=== PATIENT | male | born 1960 | race American Indian/Alaskan Native ===

== ENCOUNTER 2018-01-02 00:45 | Emergency (ER) | payer BC ==
[~2018-01-02] VITALS: Ht 175.3 cm; Wt 126.0 kg
[~2018-01-02 00:45] MED LIST: ALB0.5UD IH; ALBU18HF2 IH; ASPI81TA52 PO; CEPH-571 PO; FURO-150 PO; LISI10TA4 PO; METO25TA6 PO; POTA10TA10 PO
[2018-01-02] MEDS ORDERED: clindamycin 150mg capsule PO ONE (01:10)
[2018-01-02] MEDS ORDERED: CLIN-80 PO (01:16)
[2018-01-02] MEDS ORDERED: acetaminophen 325mg tablet PO ONE (01:20)
[2018-01-02 01:26] VITALS: BP 131/78
== END 2018-01-02 01:27 | disposition home or self-care (01) ==
LOC: ER 00:45
DX: L97.529 Non-pressure chronic ulcer of other part of left foot with unspecified severity (principal); L97.519 Non-pressure chronic ulcer of other part of right foot with unspecified severity; F15.10 Other stimulant abuse, uncomplicated; J44.9 Chronic obstructive pulmonary disease, unspecified; I11.0 Hypertensive heart disease with heart failure; I50.9 Heart failure, unspecified; F12.10 Cannabis abuse, uncomplicated; Z79.82 Long term (current) use of aspirin; Z79.899 Other long term (current) drug therapy; Z88.8 Allergy status to other drugs, medicaments and biological substances
CPT/HCPCS: 99283

== ENCOUNTER 2018-01-08 13:47 | Emergency (ER) | payer BC ==
[~2018-01-08] VITALS: Ht 175.3 cm; Wt 122.7 kg
[~2018-01-08 13:47] MED LIST changes: +CLIN-80 PO
[2018-01-08] MEDS ORDERED: furosemide 40mg/4ml inj IV ONE (16:00)
[2018-01-08] MEDS ORDERED: nitroGLYCERIN 0.4mg SUBLingual tab SL PRN (16:00)
[2018-01-08 17:08] LABS: ALANINE AMINOTRANSFERASE 41 U/L (12-78); ALBUMIN 2.6 G/DL (3.4-5.0); ALBUMIN/GLOBULIN RATIO 0.7 (1.1-1.5); ALKALINE PHOSPHATASE 107 IU/L (46-116); ANION GAP 8 (8-16); ASPARTATE AMINO TRANSFERASE 29 U/L (10-37); BILIRUBIN,TOTAL 1.2 MG/DL (0.1-1.0); BLOOD UREA NITROGEN 18 MG/DL (7-18); BUN/CREATININE RATIO 13.8 (5.4-32.0); CHLORIDE 101 MMOL/L (99-107); GLUCOSE 144 MG/DL (70-104); POTASSIUM 4.1 MMOL/L (3.5-5.1); SODIUM 138 MMOL/L (135-145); TOTAL CARBON DIOXIDE 29.3 MMOL/L (24-32); TOTAL PROTEIN 6.4 G/DL (6.4-8.2); eGFR 57 ML/MIN
[2018-01-08 17:10] LABS: BASOPHILS # (AUTO) 0.1 X10'3 (0-0.2); BASOPHILS % (AUTO) 1.3 % (0-1); EOSINOPHILS # (AUTO) 0.6 X10'3 (0-0.9); EOSINOPHILS % (AUTO) 6.6 % (0-6); HEMATOCRIT 34.5 % (42.0-52.0); HEMOGLOBIN 10.9 g/dl (14.0-17.9); LYMPHOCYTES # (AUTO) 2.4 X10'3 (1.1-4.8); LYMPHOCYTES % (AUTO) 25.9 % (21-51); MEAN CORPUSCULAR HEMOGLOBIN 24.8 PG (27.0-31.0); MEAN CORPUSCULAR HGB CONC 31.8 % (33.0-36.5); MEAN PLATELET VOLUME 7.4 FL (7.4-10.4); MONOCYTES # (AUTO) 0.8 X10'3 (0-0.9); MONOCYTES % (AUTO) 8.9 % (2-12); NEUTROPHILS # (AUTO) 5.4 X10'3 (1.8-7.7); NEUTROPHILS % (AUTO) 57.3 % (42-75); PLATELET COUNT 360 X10'3 (140-440); RED BLOOD COUNT 4.42 X10'6 (4.70-6.10); RED CELL DISTRIBUTION WIDTH 18.3 % (11.5-14.5); WHITE BLOOD COUNT 9.4 X10'3 (4.5-11.0)
[2018-01-08 18:46] VITALS: BP 145/65
== END 2018-01-08 18:48 | disposition home or self-care (01) ==
LOC: ER 13:48
DX: R60.0 Localized edema (principal); I11.0 Hypertensive heart disease with heart failure; I50.9 Heart failure, unspecified; F12.10 Cannabis abuse, uncomplicated; F15.10 Other stimulant abuse, uncomplicated; J44.9 Chronic obstructive pulmonary disease, unspecified; Z88.8 Allergy status to other drugs, medicaments and biological substances; Z79.82 Long term (current) use of aspirin; Z79.899 Other long term (current) drug therapy
CPT/HCPCS: 36415; 71045; 80053; 83880; 84484; 85025; 93005; 96374; 99285; A6257; J1940

== ENCOUNTER 2018-01-16 17:03 | Inpatient (IN) | payer BC ==
[~2018-01-16] VITALS: Ht 170.2 cm; Wt 110.0 kg
[2018-01-16] MEDS ORDERED: albuterol 2.5 MG/3 ML nebule ONE ×2 (17:07→17:08)
[2018-01-16] MEDS ORDERED: furosemide 40mg/4ml inj IV ONE (17:10)
[2018-01-16] MEDS ORDERED: methylPREDNISolone sod succ 125mg/2ml vial IV ONE (17:10)
[2018-01-16] MEDS ORDERED: nitroGLYCERIN 1gm ointment UD TP ONE (17:10)
[2018-01-16 17:36] LABS: BASOPHILS % (AUTO) 0.2 % (0-1); EOSINOPHILS # (AUTO) 0.4 X10'3 (0-0.9); EOSINOPHILS % (AUTO) 2.8 % (0-6); HEMATOCRIT 39.9 % (42.0-52.0); HEMOGLOBIN 12.6 g/dl (14.0-17.9); LYMPHOCYTES # (AUTO) 1.3 X10'3 (1.1-4.8); LYMPHOCYTES % (AUTO) 8.9 % (21-51); MEAN CORPUSCULAR HEMOGLOBIN 24.1 PG (27.0-31.0); MEAN CORPUSCULAR HGB CONC 31.5 % (33.0-36.5); MEAN CORPUSCULAR VOLUME 76.6 FL (78-98); MEAN PLATELET VOLUME 7.4 FL (7.4-10.4); MONOCYTES # (AUTO) 0.9 X10'3 (0-0.9); NEUTROPHILS # (AUTO) 12.2 X10'3 (1.8-7.7); NEUTROPHILS % (AUTO) 82.1 % (42-75); PLATELET COUNT 326 X10'3 (140-440); RED CELL DISTRIBUTION WIDTH 18.4 % (11.5-14.5); WHITE BLOOD COUNT 14.9 X10'3 (4.5-11.0)
[2018-01-16 17:46] LABS: PARTIAL THROMBOPLASTIN TIME 23 SECONDS (22-32); PROTHROMBIN TIME 10.7 SECONDS (9.0-12.0)
[2018-01-16 17:59] LABS: ALANINE AMINOTRANSFERASE 25 U/L (12-78); ALBUMIN 2.7 G/DL (3.4-5.0); ALBUMIN/GLOBULIN RATIO 0.6 (1.1-1.5); ALKALINE PHOSPHATASE 103 IU/L (46-116); ANION GAP 7 (8-16); ASPARTATE AMINO TRANSFERASE 35 U/L (10-37); BLOOD UREA NITROGEN 11 MG/DL (7-18); BUN/CREATININE RATIO 9.6 (5.4-32.0); CALCIUM 8.4 MG/DL (8.5-10.1); CHLORIDE 100 MMOL/L (99-107); CREATININE 1.15 MG/DL (0.60-1.10); GLUCOSE 199 MG/DL (70-104); MAGNESIUM 1.8 MG/DL (1.5-2.4); POTASSIUM 4.2 MMOL/L (3.5-5.1); SODIUM 137 MMOL/L (135-145); TOTAL CARBON DIOXIDE 29.8 MMOL/L (24-32); TOTAL PROTEIN 7.4 G/DL (6.4-8.2); eGFR 66 ML/MIN
[2018-01-16] MEDS ORDERED: ipratropium/albuterol 3ml nebule NEB ONE (18:55)
[2018-01-16] MEDS ORDERED: magnesium hydroxide 30ml (MOM) UD suspension PO PRN (19:40)
[2018-01-16] MEDS ORDERED: acetaminophen 325mg tablet PO PRN (19:40)
[2018-01-16] MEDS ORDERED: ondansetron/PF 4mg/2ml inj IV PRN (19:40)
[2018-01-16] MEDS ORDERED: mag hydrox/Alum hydrox/simeth 30ml oral suspension PO PRN (19:40)
[2018-01-16] MEDS ORDERED: SPIR25TA3 PO (20:17)
[2018-01-16] MEDS ORDERED: CARV-50 PO (20:17)
[2018-01-16] MEDS ORDERED: POTA10TA19 PO (20:17)
[2018-01-16] MEDS: heparin, porcine 5000 units/ml vial SQ SCH (20:26)
[2018-01-16 21:06] LABS: URINE AMPHETAMINE SCREEN NEGATIVE (Neg); URINE BARBITUATE SCREEN NEGATIVE (Neg); URINE BENZODIAZEPINES SCREEN NEGATIVE (Neg); URINE CANNABINOID SCREEN POSITIVE (Neg); URINE COCAINE SCREEN NEGATIVE (Neg); URINE METHADONE SCREEN NEGATIVE (Neg); URINE OPIATE SCREEN POSITIVE (Neg); URINE PHENCYCLIDINE SCREEN NEGATIVE (Neg)
[2018-01-16] MEDS: clindamycin 150mg capsule PO SCH (21:07)
[2018-01-16 23:15] VITALS: BP 140/98
[2018-01-17 03:00] VITALS: BP 150/97
[2018-01-17] MEDS ORDERED: ipratropium 0.5 MG/2.5ML nebule IH ONE (04:05)
[2018-01-17] MEDS ORDERED: methylPREDNISolone sod succ/PF 40mg inj. IV ONE (04:21)
[2018-01-17 06:00] VITALS: BP 136/95
[2018-01-17 06:35] LABS: ALANINE AMINOTRANSFERASE 27 U/L (12-78); ALBUMIN 2.6 G/DL (3.4-5.0); ALBUMIN/GLOBULIN RATIO 0.5 (1.1-1.5); ALKALINE PHOSPHATASE 98 IU/L (46-116); ANION GAP 10 (8-16); ASPARTATE AMINO TRANSFERASE 36 U/L (10-37); BILIRUBIN,TOTAL 1.1 MG/DL (0.1-1.0); BLOOD UREA NITROGEN 13 MG/DL (7-18); BUN/CREATININE RATIO 14.9 (5.4-32.0); CALCIUM 8.6 MG/DL (8.5-10.1); CHLORIDE 100 MMOL/L (99-107); CREATININE 0.87 MG/DL (0.60-1.10); GLUCOSE 187 MG/DL (70-104); MAGNESIUM 2.1 MG/DL (1.5-2.4); POTASSIUM 4.3 MMOL/L (3.5-5.1); SODIUM 136 MMOL/L (135-145); TOTAL CARBON DIOXIDE 26.3 MMOL/L (24-32); TOTAL PROTEIN 7.6 G/DL (6.4-8.2); eGFR 90 ML/MIN
[2018-01-17 07:34] LABS: BASOPHILS % (AUTO) 0 % (0-1); EOSINOPHILS # (AUTO) 0.2 X10'3 (0-0.9); EOSINOPHILS % (AUTO) 1.9 % (0-6); HEMATOCRIT 42.4 % (42.0-52.0); HEMOGLOBIN 13.4 g/dl (14.0-17.9); LYMPHOCYTES # (AUTO) 0.9 X10'3 (1.1-4.8); LYMPHOCYTES % (AUTO) 6.9 % (21-51); MEAN CORPUSCULAR HGB CONC 31.6 % (33.0-36.5); MEAN PLATELET VOLUME 7.6 FL (7.4-10.4); MONOCYTES # (AUTO) 0.3 X10'3 (0-0.9); MONOCYTES % (AUTO) 2.1 % (2-12); NEUTROPHILS # (AUTO) 11.4 X10'3 (1.8-7.7); NEUTROPHILS % (AUTO) 89.1 % (42-75); PLATELET COUNT 295 X10'3 (140-440); RED BLOOD COUNT 5.58 X10'6 (4.70-6.10); RED CELL DISTRIBUTION WIDTH 18.1 % (11.5-14.5); WHITE BLOOD COUNT 12.8 X10'3 (4.5-11.0)
[2018-01-17] MEDS: potassium Cl 20 mEq SR tablet PO SCH (07:34)
[2018-01-17] MEDS: clindamycin 150mg capsule PO SCH ×3 (07:34→20:16)
[2018-01-17] MEDS: carvedilol 6.25mg tablet PO SCH ×2 (07:35→20:16)
[2018-01-17] MEDS: magnesium oxide 400mg tablet PO SCH (07:35)
[2018-01-17] MEDS: heparin, porcine 5000 units/ml vial SQ SCH ×2 (07:39→20:16)
[2018-01-17] MEDS ORDERED: furosemide 20MG tablet PO SCH (08:00)
[2018-01-17] MEDS ORDERED: methylPREDNISolone sod succ/PF 40mg inj. IV SCH (08:00)
[2018-01-17] MEDS: albuterol 2.5 MG/3 ML nebule NEB PRN ×2 (09:45→12:56)
[2018-01-17 11:00] VITALS: BP 142/92
[2018-01-17 15:00] VITALS: BP 155/90
[2018-01-17] MEDS: ipratropium/albuterol 3ml nebule NEB SCH ×2 (15:11→19:44)
[2018-01-17] MEDS: lactobacillus rhamnosus 10,000 MMU CELLS/CAPSULE PO SCH (16:50)
[2018-01-17 19:00] VITALS: BP 154/96
[2018-01-17] MEDS: furosemide 40mg/4ml inj IV SCH (20:16)
[2018-01-17 23:00] VITALS: BP 157/96
[2018-01-18] MEDS: ipratropium/albuterol 3ml nebule NEB SCH ×4 (02:55→22:06)
[2018-01-18 03:00] VITALS: BP 154/99
[2018-01-18 06:00] VITALS: BP 173/101
[2018-01-18 06:01] LABS: BASOPHILS # (AUTO) 0.1 X10'3 (0-0.2); BASOPHILS % (AUTO) 0.4 % (0-1); EOSINOPHILS # (AUTO) 0.3 X10'3 (0-0.9); EOSINOPHILS % (AUTO) 1.7 % (0-6); HEMATOCRIT 39.7 % (42.0-52.0); HEMOGLOBIN 12.5 g/dl (14.0-17.9); LYMPHOCYTES # (AUTO) 1.8 X10'3 (1.1-4.8); LYMPHOCYTES % (AUTO) 10.7 % (21-51); MEAN CORPUSCULAR HEMOGLOBIN 24.4 PG (27.0-31.0); MEAN CORPUSCULAR HGB CONC 31.5 % (33.0-36.5); MEAN CORPUSCULAR VOLUME 77.4 FL (78-98); MEAN PLATELET VOLUME 7.6 FL (7.4-10.4); MONOCYTES # (AUTO) 1.1 X10'3 (0-0.9); MONOCYTES % (AUTO) 6.5 % (2-12); NEUTROPHILS # (AUTO) 13.3 X10'3 (1.8-7.7); NEUTROPHILS % (AUTO) 80.7 % (42-75); PLATELET COUNT 270 X10'3 (140-440); RED BLOOD COUNT 5.13 X10'6 (4.70-6.10); RED CELL DISTRIBUTION WIDTH 18.4 % (11.5-14.5); WHITE BLOOD COUNT 16.5 X10'3 (4.5-11.0)
[2018-01-18 06:27] LABS: ALANINE AMINOTRANSFERASE 28 U/L (12-78); ALBUMIN 2.3 G/DL (3.4-5.0); ALBUMIN/GLOBULIN RATIO 0.5 (1.1-1.5); ALKALINE PHOSPHATASE 87 IU/L (46-116); ANION GAP 6 (8-16); ASPARTATE AMINO TRANSFERASE 23 U/L (10-37); BILIRUBIN,TOTAL 0.6 MG/DL (0.1-1.0); BLOOD UREA NITROGEN 26 MG/DL (7-18); BUN/CREATININE RATIO 27.1 (5.4-32.0); CALCIUM 8.4 MG/DL (8.5-10.1); CHLORIDE 102 MMOL/L (99-107); CREATININE 0.96 MG/DL (0.60-1.10); GLUCOSE 212 MG/DL (70-104); MAGNESIUM 2.1 MG/DL (1.5-2.4); POTASSIUM 3.9 MMOL/L (3.5-5.1); SODIUM 140 MMOL/L (135-145); TOTAL CARBON DIOXIDE 32.2 MMOL/L (24-32); TOTAL PROTEIN 6.9 G/DL (6.4-8.2); eGFR 81 ML/MIN
[2018-01-18] MEDS: heparin, porcine 5000 units/ml vial SQ SCH ×2 (07:32→19:52)
[2018-01-18] MEDS: potassium Cl 20 mEq SR tablet PO SCH (07:32)
[2018-01-18] MEDS: furosemide 40mg/4ml inj IV SCH ×2 (07:32→19:53)
[2018-01-18] MEDS: clindamycin 150mg capsule PO SCH ×3 (07:32→20:06)
[2018-01-18] MEDS: carvedilol 6.25mg tablet PO SCH ×2 (07:32→19:53)
[2018-01-18] MEDS: lactobacillus rhamnosus 10,000 MMU CELLS/CAPSULE PO SCH ×2 (07:33→17:47)
[2018-01-18] MEDS: magnesium oxide 400mg tablet PO SCH (07:33)
[2018-01-18] MEDS: morphine 2 MG/ML inj. syringe IV PRN ×3 (07:41→22:20)
[2018-01-18] MEDS ORDERED: carvedilol 6.25mg tablet PO ONE (10:30)
[2018-01-18 11:00] VITALS: BP 131/97
[2018-01-18] MEDS: spironolactone 25 MG tablet PO SCH (11:15)
[2018-01-18] MEDS: albuterol 2.5 MG/3 ML nebule NEB PRN ×2 (13:40→17:56)
[2018-01-18 15:00] VITALS: BP 144/85
[2018-01-18 19:00] VITALS: BP 117/67
[2018-01-18 23:00] VITALS: BP 144/99
[2018-01-19 03:00] VITALS: BP 132/83
[2018-01-19] MEDS: ipratropium/albuterol 3ml nebule NEB SCH ×3 (03:14→14:54)
[2018-01-19 06:00] VITALS: BP 127/92
[2018-01-19 07:06] LABS: ALANINE AMINOTRANSFERASE 30 U/L (12-78); ALBUMIN 2.4 G/DL (3.4-5.0); ALBUMIN/GLOBULIN RATIO 0.5 (1.1-1.5); ALKALINE PHOSPHATASE 84 IU/L (46-116); ANION GAP 5 (8-16); ASPARTATE AMINO TRANSFERASE 24 U/L (10-37); BILIRUBIN,TOTAL 0.5 MG/DL (0.1-1.0); BLOOD UREA NITROGEN 25 MG/DL (7-18); BUN/CREATININE RATIO 25.5 (5.4-32.0); CALCIUM 8.6 MG/DL (8.5-10.1); CHLORIDE 101 MMOL/L (99-107); CREATININE 0.98 MG/DL (0.60-1.10); GLUCOSE 161 MG/DL (70-104); MAGNESIUM 2.3 MG/DL (1.5-2.4); SODIUM 141 MMOL/L (135-145); TOTAL CARBON DIOXIDE 35.3 MMOL/L (24-32); TOTAL PROTEIN 6.9 G/DL (6.4-8.2); eGFR 79 ML/MIN
[2018-01-19] MEDS: potassium Cl 20 mEq SR tablet PO SCH (07:45)
[2018-01-19] MEDS: spironolactone 25 MG tablet PO SCH (07:45)
[2018-01-19] MEDS: lactobacillus rhamnosus 10,000 MMU CELLS/CAPSULE PO SCH ×2 (07:45→17:30)
[2018-01-19] MEDS: magnesium oxide 400mg tablet PO SCH (07:46)
[2018-01-19] MEDS: carvedilol 6.25mg tablet PO SCH (07:46)
[2018-01-19] MEDS: clindamycin 150mg capsule PO SCH ×2 (07:46→13:26)
[2018-01-19] MEDS: furosemide 40mg/4ml inj IV SCH (07:48)
[2018-01-19] MEDS: heparin, porcine 5000 units/ml vial SQ SCH (07:48)
[2018-01-19] MEDS: morphine 2 MG/ML inj. syringe IV PRN ×2 (07:50→15:13)
[2018-01-19 11:54] VITALS: BP 131/85
[2018-01-19] MEDS ORDERED: LACT1CAP26 PO (16:14)
[2018-01-19] MEDS ORDERED: CLE150C PO (16:14)
[2018-01-19 16:44] VITALS: BP 130/87
[2018-01-20] MEDS ORDERED: furosemide 40mg tablet PO SCH (08:00)
== END 2018-01-19 17:15 | disposition home or self-care (01) | DRG 291 ==
LOC: ER 17:03 → ED HOLD 19:40 → EDBEDREQ 21:11 → PCU 3S 23:09 → UNDODISIN 01-18 14:51
PROVIDERS: ADMIT Internal Medicine; ATTEND Internal Medicine Nephrology
DX: I11.0 Hypertensive heart disease with heart failure (principal); J96.01 Acute respiratory failure with hypoxia; J44.1 Chronic obstructive pulmonary disease with (acute) exacerbation; J44.0 Chronic obstructive pulmonary disease with (acute) lower respiratory infection; I50.23 Acute on chronic systolic (congestive) heart failure; I42.0 Dilated cardiomyopathy; E66.9 Obesity, unspecified; F15.10 Other stimulant abuse, uncomplicated; J20.9 Acute bronchitis, unspecified; Z72.0 Tobacco use; Z79.4 Long term (current) use of insulin; Z79.82 Long term (current) use of aspirin; Z79.899 Other long term (current) drug therapy; Z91.19 Patient's noncompliance with other medical treatment and regimen; Z88.8 Allergy status to other drugs, medicaments and biological substances; Z83.3 Family history of diabetes mellitus; Z80.9 Family history of malignant neoplasm, unspecified; Z71.6 Tobacco abuse counseling; Z68.38 Body mass index [BMI] 38.0-38.9, adult
CPT/HCPCS: 36415; 71045; 71250; 80053; 80305; 83605; 83735; 83880; 84145; 84484; 85025; 85610; 85730; 87040; 87070; 87502; 87503; 93005; 94640; 94667; 94760; 96374; 96375; 99291; J1644; J1940; J2270; J2920; J2930

== ENCOUNTER 2018-04-02 18:29 | Inpatient (IN) | payer BC ==
[~2018-04-02] VITALS: Ht 177.8 cm; Wt 120.5 kg
[~2018-04-02 18:29] MED LIST changes: -ALB0.5UD IH; +CARV-50 PO; -CEPH-571 PO; +CLE150C PO; -CLIN-80 PO; +LACT1CAP26 PO; -LISI10TA4 PO; -METO25TA6 PO; -POTA10TA10 PO; +POTA10TA19 PO; +SPIR25TA3 PO
[2018-04-02 18:58] LABS: BASOPHILS # (AUTO) 0.1 X10'3 (0-0.2); BASOPHILS % (AUTO) 1.3 % (0-1); EOSINOPHILS # (AUTO) 0.7 X10'3 (0-0.9); EOSINOPHILS % (AUTO) 7.6 % (0-6); HEMOGLOBIN 13.6 g/dl (14.0-17.9); LYMPHOCYTES # (AUTO) 2.3 X10'3 (1.1-4.8); LYMPHOCYTES % (AUTO) 23.5 % (21-51); MEAN CORPUSCULAR HEMOGLOBIN 25.8 PG (27.0-31.0); MEAN CORPUSCULAR HGB CONC 32.5 % (33.0-36.5); MEAN CORPUSCULAR VOLUME 79.4 FL (78-98); MEAN PLATELET VOLUME 8.1 FL (7.4-10.4); MONOCYTES # (AUTO) 0.6 X10'3 (0-0.9); MONOCYTES % (AUTO) 5.8 % (2-12); NEUTROPHILS % (AUTO) 61.8 % (42-75); PLATELET COUNT 216 X10'3 (140-440); RED BLOOD COUNT 5.28 X10'6 (4.70-6.10); RED CELL DISTRIBUTION WIDTH 23.8 % (11.5-14.5); WHITE BLOOD COUNT 9.8 X10'3 (4.5-11.0)
[2018-04-02 19:09] LABS: PARTIAL THROMBOPLASTIN TIME 23 SECONDS (22-32); PROTHROMBIN TIME 10.2 SECONDS (9.0-12.0)
[2018-04-02 19:14] LABS: ALBUMIN 3.2 G/DL (3.4-5.0); ANION GAP 11 (8-16); BILIRUBIN,TOTAL 0.8 MG/DL (0.1-1.0); BLOOD UREA NITROGEN 20 MG/DL (7-18); BUN/CREATININE RATIO 13.2 (5.4-32.0); CALCIUM 8.7 MG/DL (8.5-10.1); CHLORIDE 102 MMOL/L (99-107); CREATININE 1.51 MG/DL (0.60-1.10); GLUCOSE 170 MG/DL (70-104); SODIUM 141 MMOL/L (135-145); TOTAL CARBON DIOXIDE 28.1 MMOL/L (24-32); TOTAL PROTEIN 6.8 G/DL (6.4-8.2); eGFR 48 ML/MIN
[2018-04-02 19:15] LABS: ALANINE AMINOTRANSFERASE 35 U/L (12-78); ALBUMIN/GLOBULIN RATIO 0.9 (1.1-1.5); ALKALINE PHOSPHATASE 117 IU/L (46-116); ASPARTATE AMINO TRANSFERASE 42 U/L (10-37)
[2018-04-02] MEDS ORDERED: normal saline 1000ML IV soln IV ONE (19:45)
[2018-04-02 19:55] LABS: MAGNESIUM 2.1 MG/DL (1.5-2.4)
[2018-04-02] MEDS ORDERED: temazepam 15mg capsule PO PRN (21:00)
[2018-04-02 21:14] LABS: CLARITY,URINE SLIGHTLY CLOUDY (Clear); COLOR,URINE YELLOW (Yellow); GLUCOSE, URINE 100 mg/dl (Neg); KETONES,URINE NEGATIVE (Neg); LEUKOCYTE ESTERASE ,URINE NEGATIVE (Neg); NITRITES, URINE NEGATIVE (Neg); OCCULT BLOOD,URINE MODERATE (Neg); PROTEIN,URINE >=300 mg/dl (Neg)
[2018-04-02] MEDS ORDERED: aspirin 81mg tab.chew PO ONE (21:15)
[2018-04-02 21:16] LABS: UA COLLECTION TYPE CLN CATCH MIDSTREAM
[2018-04-02 21:24] LABS: BACTERIA,URINE 2+ /HPF (Neg); SQUAMOUS EPITHELIAL CELL,UR MODERATE /LPF (FEW)
[2018-04-02 21:25] LABS: SPERM FEW /HPF (NEGATIVE)
[2018-04-02 21:27] LABS: AMORPHOUS URATES 2+
[2018-04-02] MEDS ORDERED: albuterol 2.5 MG/3 ML nebule NEB PRN (22:25)
[2018-04-02] MEDS ORDERED: non-formulary drug (Albuterol Sulfate (Ventolin Hfa) 2 PUFFS) IH PRN (22:25)
[2018-04-02 22:30] LABS: URINE AMPHETAMINE SCREEN POSITIVE (Neg); URINE BARBITUATE SCREEN NEGATIVE (Neg); URINE BENZODIAZEPINES SCREEN NEGATIVE (Neg); URINE CANNABINOID SCREEN POSITIVE (Neg); URINE COCAINE SCREEN NEGATIVE (Neg); URINE METHADONE SCREEN NEGATIVE (Neg); URINE OPIATE SCREEN NEGATIVE (Neg); URINE PHENCYCLIDINE SCREEN NEGATIVE (Neg)
[2018-04-02] MEDS ORDERED: diphenhydrAMINE 25mg capsule PO PRN (22:30)
[2018-04-02] MEDS ORDERED: HYDROcodone/acetaminophen 10/325mg tab PO PRN (22:30)
[2018-04-02] MEDS ORDERED: morphine 4 MG/ML inj SYRINge IV PRN ×2 (22:30)
[2018-04-02] MEDS ORDERED: ondansetron/PF 4mg/2ml inj IV PRN (22:30)
[2018-04-02] MEDS ORDERED: HYDROcodone/acetaminophen 5mg/325mg tablet PO PRN (22:30)
[2018-04-02] MEDS ORDERED: magnesium hydroxide 30ml (MOM) UD suspension PO PRN (22:30)
[2018-04-02] MEDS ORDERED: acetaminophen 650mg rectal suppository RC PRN (22:30)
[2018-04-02] MEDS ORDERED: mag hydrox/Alum hydrox/simeth 30ml oral suspension PO PRN (22:30)
[2018-04-02] MEDS ORDERED: acetaminophen 325mg tablet PO PRN ×2 (22:30)
[2018-04-02] MEDS ORDERED: diphenhydrAMINE 50 mg/ml inj IV PRN (22:30)
[2018-04-02] MEDS ORDERED: metoclopramide 5 mg/ml inj IV PRN (22:30)
[2018-04-02] MEDS ORDERED: bisacodyl 10mg suppository rectal RC PRN (22:30)
[2018-04-02] MEDS ORDERED: HYDROmorphone inj. 0.5 MG/0.5 ML DISP.SYRIN IV PRN ×2 (22:30)
[2018-04-02 22:57] LABS: D-DIMER 0.42 MG/L FEU (0-0.50)
[2018-04-02] MEDS ORDERED: azithromycin 250mg tablet PO ONE (23:05)
[2018-04-02] MEDS: CefTRIAXone/D5W-Rocephin 1gm 50 ML IV SCH (23:19)
[2018-04-03] VITALS (7 sets, daily range): BP systolic 105–171; BP diastolic 71–112
[2018-04-03 00:15] LABS: CREATINE KINASE 200 U/L (39-308); LIPASE 318 U/L (73-393)
[2018-04-03] MEDS: heparin, porcine 5000 units/ml vial SQ SCH ×3 (01:00→16:09)
[2018-04-03 03:10] LABS: BASOPHILS # (AUTO) 0.2 X10'3 (0-0.2); BASOPHILS % (AUTO) 1.6 % (0-1); EOSINOPHILS # (AUTO) 0.5 X10'3 (0-0.9); EOSINOPHILS % (AUTO) 4.5 % (0-6); HEMATOCRIT 38.5 % (42.0-52.0); HEMOGLOBIN 12.4 g/dl (14.0-17.9); LYMPHOCYTES # (AUTO) 2.2 X10'3 (1.1-4.8); LYMPHOCYTES % (AUTO) 19.7 % (21-51); MEAN CORPUSCULAR HEMOGLOBIN 25.9 PG (27.0-31.0); MEAN CORPUSCULAR HGB CONC 32.3 % (33.0-36.5); MEAN CORPUSCULAR VOLUME 80.3 FL (78-98); MEAN PLATELET VOLUME 8.4 FL (7.4-10.4); MONOCYTES # (AUTO) 0.7 X10'3 (0-0.9); MONOCYTES % (AUTO) 5.9 % (2-12); NEUTROPHILS # (AUTO) 7.6 X10'3 (1.8-7.7); NEUTROPHILS % (AUTO) 68.3 % (42-75); PLATELET COUNT 192 X10'3 (140-440); RED CELL DISTRIBUTION WIDTH 23.8 % (11.5-14.5); WHITE BLOOD COUNT 11.2 X10'3 (4.5-11.0)
[2018-04-03 03:15] LABS: ALANINE AMINOTRANSFERASE 28 U/L (12-78); ALBUMIN 2.8 G/DL (3.4-5.0); ALBUMIN/GLOBULIN RATIO 0.9 (1.1-1.5); ALKALINE PHOSPHATASE 102 IU/L (46-116); ANION GAP 7 (8-16); ASPARTATE AMINO TRANSFERASE 27 U/L (10-37); BILIRUBIN,TOTAL 0.6 MG/DL (0.1-1.0); BLOOD UREA NITROGEN 20 MG/DL (7-18); BUN/CREATININE RATIO 19.8 (5.4-32.0); CHLORIDE 107 MMOL/L (99-107); CREATININE 1.01 MG/DL (0.60-1.10); GLUCOSE 129 MG/DL (70-104); POTASSIUM 4.4 MMOL/L (3.5-5.1); SODIUM 141 MMOL/L (135-145); eGFR 76 ML/MIN
[2018-04-03 03:18] LABS: CHOL/HDL RATIO 2.7 (0.00-4.99); CHOLESTEROL 151 MG/DL (0-200); HDL CHOLESTEROL 55 MG/DL (35-60); LDL CHOLESTEROL 87 MG/DL (50-100); TRIGLYCERIDES 60 MG/DL (20-135)
[2018-04-03] MEDS ORDERED: hydrALAZINE 20mg/ml inj. IV PRN (04:00)
[2018-04-03 04:38] LABS: PLATELET ESTIMATE NORMAL; POLYCHROMASIA 1+
[2018-04-03 04:39] LABS: ELLIPTOCYTES 1+; GIANT PLATELET FEW
[2018-04-03] MEDS ORDERED: furosemide 10 MG/1 ML 10ml inj IV ONE (04:45)
[2018-04-03] MEDS ORDERED: magnesium 2GM in 50ml NS 50 ML IV PRN (06:00)
[2018-04-03] MEDS ORDERED: potassium Cl 40MEQ/NS 500ml 500 ML IV PRN ×2 (06:00)
[2018-04-03] MEDS ORDERED: magnesium Cl slow-release 64mg tablet PO PRN (06:00)
[2018-04-03] MEDS ORDERED: magnesium 4gm in 100ml NS 100 ML IV PRN (06:00)
[2018-04-03] MEDS ORDERED: potassium Cl 20 mEq SR tablet PO PRN ×2 (06:00)
[2018-04-03] MEDS ORDERED: furosemide 10 MG/1 ML 10ml inj IV SCH (08:00)
[2018-04-03] MEDS: furosemide 10 MG/1 ML 10ml inj IV SCH ×2 (08:00→20:26)
[2018-04-03] MEDS ORDERED: aspirin 81mg tablet.DR PO SCH (08:00)
[2018-04-03] MEDS: aspirin 81mg tab.chew PO SCH (08:18)
[2018-04-03] MEDS: spironolactone 25 MG tablet PO SCH (08:18)
[2018-04-03] MEDS: lactobacillus rhamnosus 10,000 MMU CELLS/CAPSULE PO SCH ×2 (08:18→20:27)
[2018-04-03] MEDS: carvedilol 6.25mg tablet PO SCH ×2 (08:18→20:27)
[2018-04-03] MEDS: docusate sod 100mg capsule PO SCH ×2 (08:18→20:27)
[2018-04-03] MEDS: nitroGLYCERIN 0.4mg/hour patch TD SCH (08:19)
[2018-04-03] MEDS: CefTRIAXone/D5W-Rocephin 1gm 50 ML IV SCH (20:27)
[2018-04-03] MEDS ORDERED: azithromycin 250mg tablet PO SCH (21:00)
[2018-04-04] MEDS: heparin, porcine 5000 units/ml vial SQ SCH ×2 (00:28→07:50)
[2018-04-04 03:00] VITALS: BP 135/94
[2018-04-04 04:54] LABS: BASOPHILS # (AUTO) 0.1 X10'3 (0-0.2); BASOPHILS % (AUTO) 1.1 % (0-1); EOSINOPHILS # (AUTO) 0.9 X10'3 (0-0.9); EOSINOPHILS % (AUTO) 8.8 % (0-6); HEMATOCRIT 42.6 % (42.0-52.0); HEMOGLOBIN 13.8 g/dl (14.0-17.9); LYMPHOCYTES % (AUTO) 20.1 % (21-51); MEAN CORPUSCULAR HGB CONC 32.5 % (33.0-36.5); MEAN CORPUSCULAR VOLUME 79.9 FL (78-98); MONOCYTES # (AUTO) 0.6 X10'3 (0-0.9); MONOCYTES % (AUTO) 6.1 % (2-12); NEUTROPHILS # (AUTO) 6.4 X10'3 (1.8-7.7); NEUTROPHILS % (AUTO) 63.9 % (42-75); PLATELET COUNT 210 X10'3 (140-440); RED BLOOD COUNT 5.33 X10'6 (4.70-6.10); RED CELL DISTRIBUTION WIDTH 23.3 % (11.5-14.5)
[2018-04-04 05:11] LABS: ALANINE AMINOTRANSFERASE 29 U/L (12-78); ALBUMIN 3.1 G/DL (3.4-5.0); ALBUMIN/GLOBULIN RATIO 0.9 (1.1-1.5); ALKALINE PHOSPHATASE 95 IU/L (46-116); ANION GAP 5 (8-16); ASPARTATE AMINO TRANSFERASE 26 U/L (10-37); BILIRUBIN,TOTAL 0.8 MG/DL (0.1-1.0); BLOOD UREA NITROGEN 15 MG/DL (7-18); BUN/CREATININE RATIO 12.6 (5.4-32.0); CALCIUM 8.7 MG/DL (8.5-10.1); CHLORIDE 101 MMOL/L (99-107); CREATININE 1.19 MG/DL (0.60-1.10); GLUCOSE 142 MG/DL (70-104); MAGNESIUM 1.8 MG/DL (1.5-2.4); POTASSIUM 3.9 MMOL/L (3.5-5.1); SODIUM 141 MMOL/L (135-145); TOTAL CARBON DIOXIDE 35.4 MMOL/L (24-32); TOTAL PROTEIN 6.7 G/DL (6.4-8.2); eGFR 63 ML/MIN
[2018-04-04 07:00] VITALS: BP 141/101
[2018-04-04] MEDS: spironolactone 25 MG tablet PO SCH (07:49)
[2018-04-04] MEDS: docusate sod 100mg capsule PO SCH (07:49)
[2018-04-04] MEDS: lactobacillus rhamnosus 10,000 MMU CELLS/CAPSULE PO SCH (07:49)
[2018-04-04] MEDS: nitroGLYCERIN 0.4mg/hour patch TD SCH (07:49)
[2018-04-04] MEDS: carvedilol 6.25mg tablet PO SCH (07:49)
[2018-04-04] MEDS: furosemide 10 MG/1 ML 10ml inj IV SCH (07:50)
[2018-04-04] MEDS: aspirin 81mg tab.chew PO SCH (08:48)
[2018-04-04] MEDS ORDERED: SULF1TAB49 PO (10:14)
== END 2018-04-04 11:00 | disposition home or self-care (01) | DRG 280 ==
LOC: ER 18:30 → ED HOLD 22:28 → PCU 3S 04-03 01:49
PROVIDERS: ADMIT Family Medicine; ATTEND Family Medicine
DX: I21.A1 Myocardial infarction type 2 (principal); I50.23 Acute on chronic systolic (congestive) heart failure; N17.9 Acute kidney failure, unspecified; I42.0 Dilated cardiomyopathy; N39.0 Urinary tract infection, site not specified; R55 Syncope and collapse; I11.0 Hypertensive heart disease with heart failure; F15.10 Other stimulant abuse, uncomplicated; J44.9 Chronic obstructive pulmonary disease, unspecified; F12.929 Cannabis use, unspecified with intoxication, unspecified; F17.210 Nicotine dependence, cigarettes, uncomplicated; I25.10 Atherosclerotic heart disease of native coronary artery without angina pectoris; Z91.14 Patient's other noncompliance with medication regimen; Z91.19 Patient's noncompliance with other medical treatment and regimen; Z88.8 Allergy status to other drugs, medicaments and biological substances; Z83.3 Family history of diabetes mellitus; Z80.9 Family history of malignant neoplasm, unspecified; Z79.899 Other long term (current) drug therapy; Z71.51 Drug abuse counseling and surveillance of drug abuser; Z71.6 Tobacco abuse counseling
CPT/HCPCS: 36415; 71045; 80053; 80061; 80305; 81001; 82550; 83036; 83605; 83690; 83735; 83880; 84145; 84443; 84484; 85025; 85379; 85610; 85730; 87040; 87070; 87077; 87088; 87186; 93005; 94640; 94760; 96360; 96361; 99285; A6258; J0696; J1644; J1940; J7030

== ENCOUNTER 2024-07-30 00:18 | Inpatient (IN) | payer BC, OTHER ==
[~2024-07-30] VITALS: Ht 177.8 cm; Wt 101.9 kg
[2024-07-30] VITALS (21 sets, daily range): BP systolic 102–147; BP diastolic 65–96; PULSE 67–101; RESP 14–20; TEMP 98.2–98.9; O2SAT 94–100
[~2024-07-30 00:18] MED LIST changes: -CLE150C PO; -LACT1CAP26 PO; +POTA-192 PO; -POTA10TA19 PO; -SPIR25TA3 PO; +SPIR25TA5 PO
[2024-07-30 00:40] LABS: BASOPHILS # (AUTO) 0.1 X10'3 (0-0.2); BASOPHILS % (AUTO) 1.1 % (0-1); EOSINOPHILS # (AUTO) 0.5 X10'3 (0-0.9); HEMATOCRIT 32.3 % (42.0-52.0); HEMOGLOBIN 10.7 g/dl (14.0-17.9); MEAN CORPUSCULAR HEMOGLOBIN 30.6 PG (27.0-31.0); MEAN CORPUSCULAR HGB CONC 33.1 g/dL (33.0-36.5); MEAN CORPUSCULAR VOLUME 92.5 FL (78-98); MEAN PLATELET VOLUME 7.1 FL (7.4-10.4); MONOCYTES # (AUTO) 0.6 X10'3 (0-0.9); MONOCYTES % (AUTO) 4.6 % (2-12); NEUTROPHILS # (AUTO) 8.4 X10'3 (1.8-7.7); NEUTROPHILS % (AUTO) 66.3 % (42-75); PLATELET COUNT 268 X10'3 (140-440); RED BLOOD COUNT 3.49 X10'6 (4.70-6.10); RED CELL DISTRIBUTION WIDTH 13.9 % (11.5-14.5); WHITE BLOOD COUNT 12.7 X10'3 (4.5-11.0)
[2024-07-30 00:54] LABS: ALANINE AMINOTRANSFERASE 18 U/L (12-78); ALBUMIN 2.7 G/DL (3.4-5.0); ALBUMIN/GLOBULIN RATIO 0.9 (1.1-1.5); ALKALINE PHOSPHATASE 91 IU/L (46-116); ANION GAP 6 (8-16); ASPARTATE AMINO TRANSFERASE 16 U/L (10-37); BILIRUBIN,TOTAL 0.6 MG/DL (0.1-1.0); BLOOD UREA NITROGEN 13 MG/DL (7-18); BUN/CREATININE RATIO 11.9 (10.0-20.0); CALCIUM 8.2 MG/DL (8.5-10.1); CHLORIDE 103 MMOL/L (99-107); CREATININE 1.09 MG/DL (0.60-1.10); GLUCOSE 154 MG/DL (70-104); POTASSIUM 3.8 MMOL/L (3.5-5.1); SODIUM 137 MMOL/L (135-145); TOTAL CARBON DIOXIDE 27.9 MMOL/L (24-32); TOTAL PROTEIN 5.6 G/DL (6.4-8.2); eCRCL 72 ML/MIN; eGFR 68 ML/MIN
[2024-07-30 01:02] LABS: PRO BRAIN NATRIURETIC PEPTIDE 1288 PG/ML (0-125)
[2024-07-30 01:13] LABS: OCCULT BLOOD STOOL POSITIVE (Neg)
[2024-07-30 01:17] LABS: APTT 25 SECONDS (22-32); INR 1.1 INR; PROTHROMBIN TIME 11.2 SECONDS (9.0-12.0)
[2024-07-30] MEDS: pantoprazole 40 MG vial IV ONE (02:06)
[2024-07-30] MEDS ORDERED: ondansetron/PF 4mg/2ml inj IV PRN (02:50)
[2024-07-30] MEDS ORDERED: magnesium sulf-water 4G/100mL 100 ML IV PRN (02:50)
[2024-07-30] MEDS ORDERED: magnesium Cl slow-release 64mg tablet PO PRN (02:50)
[2024-07-30] MEDS ORDERED: magnesium hydroxide 30ml (MOM) UD suspension PO PRN (02:50)
[2024-07-30] MEDS ORDERED: mag hydrox/Alum hydrox/simeth 30ml oral suspension PO PRN (02:50)
[2024-07-30] MEDS ORDERED: acetaminophen 325mg tablet PO PRN (02:50)
[2024-07-30] MEDS ORDERED: potassium Cl 20 mEq SR tablet PO PRN ×2 (02:50)
[2024-07-30] MEDS ORDERED: magnesium sulf-water 2g/50mL 50 ML IV PRN (02:50)
[2024-07-30] MEDS ORDERED: potassium Cl 40MEQ/1/2NS 520ml 520 ML IV PRN (02:50)
[2024-07-30 03:12] LABS: MAGNESIUM 2.1 MG/DL (1.5-2.4)
[2024-07-30] MEDS: normal saline 1000ml 1,000 ML IV SCH (03:25)
[2024-07-30 03:53] LABS: URINE AMPHETAMINE SCREEN POSITIVE (Neg); URINE BARBITUATE SCREEN NEGATIVE (Neg); URINE BENZODIAZEPINES SCREEN NEGATIVE (Neg); URINE CANNABINOID SCREEN POSITIVE (Neg); URINE COCAINE SCREEN NEGATIVE (Neg); URINE METHADONE SCREEN NEGATIVE (Neg); URINE OPIATE SCREEN NEGATIVE (Neg); URINE PHENCYCLIDINE SCREEN NEGATIVE (Neg)
[2024-07-30] MEDS ORDERED: LACT1CAP65 PO (04:42)
[2024-07-30] MEDS ORDERED: SACU1TAB7 PO (04:42)
[2024-07-30] MEDS ORDERED: GLIM1TAB57 PO (04:42)
[2024-07-30] MEDS ORDERED: FURO40TA4 PO (04:42)
[2024-07-30] MEDS ORDERED: METF-436 PO (04:42)
[2024-07-30] MEDS ORDERED: EMPA10TA PO (04:42)
[2024-07-30 06:25] LABS: RED BLOOD COUNT 3.97 X10'6 (4.70-6.10)
[2024-07-30 06:26] LABS: HEMOGLOBIN 12.1 g/dl (14.0-17.9); MEAN CORPUSCULAR HEMOGLOBIN 30.4 PG (27.0-31.0); MEAN CORPUSCULAR HGB CONC 33.5 g/dL (33.0-36.5); MEAN CORPUSCULAR VOLUME 90.7 FL (78-98); PLATELET COUNT 247 X10'3 (140-440); RED CELL DISTRIBUTION WIDTH 14.6 % (11.5-14.5)
[2024-07-30] MEDS: ipratropium/albuterol 3ml nebule NEB PRN (07:32)
[2024-07-30] MEDS ORDERED: LORazepam 2 mg/ml vial IV PRN ×2 (07:45→10:55)
[2024-07-30] MEDS ORDERED: cloNIDine 0.1 mg tablet PO PRN (07:45)
[2024-07-30] MEDS ORDERED: haloperidol lactate 5mg/ml inj IM PRN ×2 (07:45→10:55)
[2024-07-30] MEDS ORDERED: haloperidol 5mg tablet PO PRN ×2 (07:45→10:55)
[2024-07-30] MEDS ORDERED: folic acid 1mg/0.2ml inj IV SCH (08:00)
[2024-07-30] MEDS: lactobacillus rhamnosus 10,000 MMU CELLS/CAPSULE PO SCH (09:16)
[2024-07-30] MEDS: multivitamins, therapeutics tablet PO SCH (09:16)
[2024-07-30] MEDS: carvedilol 6.25mg tablet PO SCH (09:16)
[2024-07-30] MEDS: pantoprazole 40 MG vial IV SCH (09:20)
[2024-07-30] MEDS: docusate sod 100mg capsule PO SCH (09:28)
[2024-07-30] MEDS: thiamine 100mg tablet PO SCH (10:55)
[2024-07-30] MEDS ORDERED: dextrose 50%-water 50ml dispensing syringe IV PRN (10:55)
[2024-07-30] MEDS: K and/or MAG REPLACEMENT MC SCH (11:09)
[2024-07-30 12:16] LABS: HEMATOCRIT 35.4 % (42.0-52.0); HEMOGLOBIN 11.7 g/dl (14.0-17.9); MEAN CORPUSCULAR HGB CONC 33.1 g/dL (33.0-36.5); MEAN CORPUSCULAR VOLUME 90.7 FL (78-98); MEAN PLATELET VOLUME 7.3 FL (7.4-10.4); PLATELET COUNT 258 X10'3 (140-440); RED CELL DISTRIBUTION WIDTH 14.6 % (11.5-14.5); WHITE BLOOD COUNT 11.6 X10'3 (4.5-11.0)
[2024-07-30] MEDS: sacubitril/valsartan 49mg-51mg tablet PO SCH (13:18)
[2024-07-30] MEDS: thiamine 100mg/ml 2ml inj. IV SCH (13:18)
[2024-07-30] MEDS: folic acid 1mg/0.2ml inj IV SCH (13:31)
[2024-07-30] MEDS ORDERED: LIDOcaine 2% Viscous 15ml cup ONE (14:36)
[2024-07-30] MEDS ORDERED: MIDAZolam 1 MG/ML 5ML VIAL ONE (16:10)
[2024-07-30] MEDS ORDERED: epiNEPHrine 0.1mg/ml 10ml syringe ONE (16:10)
[2024-07-30] MEDS ORDERED: fentaNYL/PF 50MCG/1 ML 2ML syringe ONE (16:10)
[2024-07-30 20:26] LABS: HEMATOCRIT 34.5 % (42.0-52.0); HEMOGLOBIN 11.6 g/dl (14.0-17.9); MEAN CORPUSCULAR HEMOGLOBIN 30.6 PG (27.0-31.0); MEAN CORPUSCULAR HGB CONC 33.5 g/dL (33.0-36.5); MEAN CORPUSCULAR VOLUME 91.3 FL (78-98); MEAN PLATELET VOLUME 7.1 FL (7.4-10.4); PLATELET COUNT 251 X10'3 (140-440); RED BLOOD COUNT 3.78 X10'6 (4.70-6.10); RED CELL DISTRIBUTION WIDTH 14.3 % (11.5-14.5); WHITE BLOOD COUNT 10.9 X10'3 (4.5-11.0)
[2024-07-31] VITALS (7 sets, daily range): BP systolic 114–151; BP diastolic 56–84; PULSE 60–95; RESP 16–18; TEMP 98–98.4; O2SAT 96–98
[2024-07-31 06:04] LABS: BASOPHILS # (AUTO) 0.1 X10'3 (0-0.2); BASOPHILS % (AUTO) 1.4 % (0-1); EOSINOPHILS # (AUTO) 0.7 X10'3 (0-0.9); EOSINOPHILS % (AUTO) 6.8 % (0-6); HEMATOCRIT 38.9 % (42.0-52.0); HEMOGLOBIN 12.8 g/dl (14.0-17.9); LYMPHOCYTES # (AUTO) 2.5 X10'3 (1.1-4.8); LYMPHOCYTES % (AUTO) 23.3 % (21-51); MEAN CORPUSCULAR HEMOGLOBIN 30.6 PG (27.0-31.0); MEAN CORPUSCULAR HGB CONC 32.9 g/dL (33.0-36.5); MEAN CORPUSCULAR VOLUME 92.9 FL (78-98); MEAN PLATELET VOLUME 7.9 FL (7.4-10.4); MONOCYTES # (AUTO) 0.7 X10'3 (0-0.9); MONOCYTES % (AUTO) 6.1 % (2-12); NEUTROPHILS # (AUTO) 6.8 X10'3 (1.8-7.7); NEUTROPHILS % (AUTO) 62.4 % (42-75); PLATELET COUNT 210 X10'3 (140-440); RED BLOOD COUNT 4.19 X10'6 (4.70-6.10); RED CELL DISTRIBUTION WIDTH 14.5 % (11.5-14.5); WHITE BLOOD COUNT 10.8 X10'3 (4.5-11.0)
[2024-07-31 06:09] LABS: PROTHROMBIN TIME 10.5 SECONDS (9.0-12.0)
[2024-07-31 08:54] LABS: ALANINE AMINOTRANSFERASE 15 U/L (12-78); ALKALINE PHOSPHATASE 98 IU/L (46-116); AMYLASE 39 U/L (25-115); ANION GAP 12 (8-16); ASPARTATE AMINO TRANSFERASE 23 U/L (10-37); BILIRUBIN,TOTAL 1.2 MG/DL (0.1-1.0); CHLORIDE 106 MMOL/L (99-107); LIPASE 18 U/L (16-77); POTASSIUM 4.3 MMOL/L (3.5-5.1); SODIUM 138 MMOL/L (135-145); TOTAL CARBON DIOXIDE 20.4 MMOL/L (24-32); TOTAL PROTEIN 6.5 G/DL (6.4-8.2)
[2024-07-31 09:30] LABS: BLOOD UREA NITROGEN 10 MG/DL (7-18); BUN/CREATININE RATIO 12.3 (10.0-20.0); CALCIUM 8.6 MG/DL (8.5-10.1); CREATININE 0.81 MG/DL (0.60-1.10); GLUCOSE 108 MG/DL (70-104); eCRCL 96 ML/MIN; eGFR > 90 ML/MIN
[2024-07-31 09:31] LABS: ALBUMIN 3.1 G/DL (3.4-5.0); ALBUMIN/GLOBULIN RATIO 0.9 (1.1-1.5); MAGNESIUM 2.2 MG/DL (1.5-2.4); PHOSPHORUS 3.5 MG/DL (2.3-4.5)
[2024-07-31] MEDS ORDERED: TIOT18CA3 INH (16:14)
[2024-07-31] MEDS: Tiotropium Bromide (Spiriva) IH SCH (18:52)
[2024-08-01 05:45] LABS: BASOPHILS # (AUTO) 0.1 X10'3 (0-0.2); BASOPHILS % (AUTO) 1.2 % (0-1); EOSINOPHILS # (AUTO) 0.7 X10'3 (0-0.9); EOSINOPHILS % (AUTO) 7.3 % (0-6); HEMATOCRIT 36.6 % (42.0-52.0); LYMPHOCYTES # (AUTO) 2.3 X10'3 (1.1-4.8); LYMPHOCYTES % (AUTO) 23.6 % (21-51); MEAN CORPUSCULAR HEMOGLOBIN 29.9 PG (27.0-31.0); MEAN CORPUSCULAR HGB CONC 32.8 g/dL (33.0-36.5); MEAN CORPUSCULAR VOLUME 91.2 FL (78-98); MEAN PLATELET VOLUME 7.7 FL (7.4-10.4); MONOCYTES # (AUTO) 0.7 X10'3 (0-0.9); MONOCYTES % (AUTO) 7.4 % (2-12); NEUTROPHILS % (AUTO) 60.5 % (42-75); PLATELET COUNT 240 X10'3 (140-440); RED BLOOD COUNT 4.02 X10'6 (4.70-6.10); RED CELL DISTRIBUTION WIDTH 14.4 % (11.5-14.5); WHITE BLOOD COUNT 9.8 X10'3 (4.5-11.0)
[2024-08-01 05:46] LABS: PROTHROMBIN TIME 10.8 SECONDS (9.0-12.0)
[2024-08-01 06:00] VITALS: BP 135/92; PULSE 80; RESP 18; TEMP 97.9; O2SAT 98
[2024-08-01 06:34] LABS: ALANINE AMINOTRANSFERASE 17 U/L (12-78); ALBUMIN 3.1 G/DL (3.4-5.0); ALBUMIN/GLOBULIN RATIO 0.9 (1.1-1.5); ALKALINE PHOSPHATASE 98 IU/L (46-116); AMYLASE 41 U/L (25-115); ANION GAP 8 (8-16); ASPARTATE AMINO TRANSFERASE 21 U/L (10-37); BLOOD UREA NITROGEN 6 MG/DL (7-18); BUN/CREATININE RATIO 6.8 (10.0-20.0); CALCIUM 8.8 MG/DL (8.5-10.1); CHLORIDE 106 MMOL/L (99-107); CREATININE 0.88 MG/DL (0.60-1.10); GLUCOSE 121 MG/DL (70-104); LIPASE 17 U/L (16-77); MAGNESIUM 1.9 MG/DL (1.5-2.4); PHOSPHORUS 3.6 MG/DL (2.3-4.5); POTASSIUM 3.9 MMOL/L (3.5-5.1); SODIUM 139 MMOL/L (135-145); TOTAL CARBON DIOXIDE 24.6 MMOL/L (24-32); TOTAL PROTEIN 6.4 G/DL (6.4-8.2); eCRCL 89 ML/MIN; eGFR 87 ML/MIN
[2024-08-01] MEDS ORDERED: LORazepam 1 MG tablet PO PRN ×2 (07:45→10:55)
[2024-08-01] MEDS ORDERED: LORazepam 2 mg/ml vial IV PRN ×2 (07:45→10:55)
[2024-08-01] MEDS: EMPAGLIFLOZIN 10 MG TABLET PO SCH (07:55)
[2024-08-01 10:00] VITALS: BP 126/78; PULSE 71; RESP 16; TEMP 98; O2SAT 98
[2024-08-01] MEDS ORDERED: PANT-47 PO (10:35)
[2024-08-01 10:40] VITALS: PULSE 81; PULSE 87; RESP 16; O2SAT 97
[2024-08-01] MEDS ORDERED: FERR324T4 PO (10:40)
[2024-08-01] MEDS ORDERED: FOLI1TAB27 PO (10:40)
[2024-08-01] MEDS ORDERED: MULT-25 PO (10:40)
[2024-08-01] MEDS ORDERED: THI100I IV (10:40)
[2024-08-01] MEDS ORDERED: ASCO500C17 PO (10:40)
[2024-08-01] MEDS ORDERED: THIA50TA10 PO (10:42)
[2024-08-02] MEDS ORDERED: folic acid 1mg tablet PO SCH (08:00)
[2024-08-02] MEDS ORDERED: thiamine 100mg tablet PO SCH (08:00)
[2024-08-03] MEDS ORDERED: LORazepam 2 mg/ml vial IV PRN ×2 (07:45→10:55)
[2024-08-03] MEDS ORDERED: LORazepam 1 MG tablet PO PRN ×2 (07:45→10:55)
== END 2024-08-01 12:21 | disposition home or self-care (01) | DRG 377 ==
LOC: ER 00:19 → ED HOLD 02:58 → ORTHO 4S 08:02
PROVIDERS: ADMIT Student in an Organized Health Care Education/Training Program; ATTEND Family Medicine
PROC: 30233N1 Transfusion of Nonautologous Red Blood Cells into Peripheral Vein, Percutaneous Approach (ICD-10-PCS; principal; 2024-07-30)
PROC: 0DJ08ZZ Inspection of Upper Intestinal Tract, Via Natural or Artificial Opening Endoscopic (ICD-10-PCS; 2024-07-30)
DX: K92.1 Melena (principal); R57.1 Hypovolemic shock; I50.22 Chronic systolic (congestive) heart failure; I85.00 Esophageal varices without bleeding; I11.0 Hypertensive heart disease with heart failure; F17.210 Nicotine dependence, cigarettes, uncomplicated; Z20.822 Contact with and (suspected) exposure to COVID-19; J44.9 Chronic obstructive pulmonary disease, unspecified; E11.9 Type 2 diabetes mellitus without complications; F19.10 Other psychoactive substance abuse, uncomplicated; K21.00 Gastro-esophageal reflux disease with esophagitis, without bleeding; K44.9 Diaphragmatic hernia without obstruction or gangrene; I25.2 Old myocardial infarction; Z88.8 Allergy status to other drugs, medicaments and biological substances; Z79.84 Long term (current) use of oral hypoglycemic drugs; Z79.899 Other long term (current) drug therapy; Z90.49 Acquired absence of other specified parts of digestive tract; K29.70 Gastritis, unspecified, without bleeding; D64.89 Other specified anemias
CPT/HCPCS: 36415; 36430; 43235; 71045; 80053; 80305; 82150; 82272; 82948; 83036; 83690; 83735; 83880; 84100; 85025; 85027; 85610; 85730; 86885; 86900; 86901; 86920; 87081; 87811; 93005; 94640; 94760; 96374; 97161; 99152; 99291; A4620; A6258; G0378; J0171; J2250; J2470; J3010; J3411; J3490; J7030; J7040; P9016

== ENCOUNTER 2024-11-03 17:02 | Inpatient (IN) | payer BC, OTHER ==
[~2024-11-03] VITALS: Ht 177.8 cm; Wt 100.0 kg
[~2024-11-03 17:02] MED LIST changes: -ALBU18HF2 IH; +ASCO500C17 PO; -ASPI81TA52 PO; +EMPA10TA PO; +FERR324T4 PO; +FOLI1TAB27 PO; -FURO-150 PO; +FURO40TA4 PO; +GLIM1TAB57 PO; +LACT1CAP65 PO; +METF-436 PO; +MULT-25 PO; +PANT-47 PO; -POTA-192 PO; +SACU1TAB7 PO; -SPIR25TA5 PO; +THIA50TA10 PO; +TIOT18CA3 INH
[2024-11-03] MEDS ORDERED: pantoprazole 40 MG vial IV SCH (17:30)
[2024-11-03 17:50] LABS: BASOPHILS # (AUTO) 0.2 X10'3 (0-0.2); BASOPHILS % (AUTO) 0.8 % (0-1); EOSINOPHILS # (AUTO) 0.5 X10'3 (0-0.9); EOSINOPHILS % (AUTO) 2.6 % (0-6); HEMATOCRIT 28.6 % (42.0-52.0); HEMOGLOBIN 9.2 g/dl (14.0-17.9); LYMPHOCYTES # (AUTO) 1.9 X10'3 (1.1-4.8); LYMPHOCYTES % (AUTO) 9.3 % (21-51); MEAN CORPUSCULAR HEMOGLOBIN 25.5 PG (27.0-31.0); MEAN CORPUSCULAR HGB CONC 32.1 g/dL (33.0-36.5); MEAN CORPUSCULAR VOLUME 79.5 FL (78-98); MEAN PLATELET VOLUME 7.1 FL (7.4-10.4); MONOCYTES # (AUTO) 0.9 X10'3 (0-0.9); MONOCYTES % (AUTO) 4.6 % (2-12); NEUTROPHILS # (AUTO) 16.5 X10'3 (1.8-7.7); NEUTROPHILS % (AUTO) 82.7 % (42-75); PLATELET COUNT 410 X10'3 (140-440); RED CELL DISTRIBUTION WIDTH 16.2 % (11.5-14.5); WHITE BLOOD COUNT 19.9 X10'3 (4.5-11.0)
[2024-11-03] MEDS: morphine 4 MG/ML inj SYRINge IV ONE (17:51)
[2024-11-03] MEDS: pantoprazole 40 MG vial IV ONE ×2 (17:51→19:11)
[2024-11-03] MEDS: normal saline 1000ml 1,000 ML IV ONE ×2 (17:51→19:13)
[2024-11-03 18:01] LABS: APTT 21 SECONDS (22-32); PROTHROMBIN TIME 10.8 SECONDS (9.0-12.0)
[2024-11-03 18:04] LABS: ALANINE AMINOTRANSFERASE 27 U/L (12-78); ALBUMIN 3.1 G/DL (3.4-5.0); ALBUMIN/GLOBULIN RATIO 0.8 (1.1-1.5); ALKALINE PHOSPHATASE 177 IU/L (46-116); ANION GAP 11 (8-16); ASPARTATE AMINO TRANSFERASE 43 U/L (10-37); BILIRUBIN,DIRECT 0.2 MG/DL (0-0.3); BILIRUBIN,TOTAL 0.5 MG/DL (0.1-1.0); BLOOD UREA NITROGEN 14 MG/DL (7-18); CHLORIDE 101 MMOL/L (99-107); CREATININE 1.27 MG/DL (0.60-1.10); ETHANOL < 10 MG/DL (<10); GLUCOSE 209 MG/DL (70-104); SODIUM 136 MMOL/L (135-145); TOTAL PROTEIN 6.9 G/DL (6.4-8.2); eCRCL 61 ML/MIN; eGFR 57 ML/MIN
[2024-11-03] MEDS: octreotide 100mcg/1 ml ampule IV ONE (18:32)
[2024-11-03 19:41] LABS: ABSOLUTE RETICS # 46300 /CUMM (23000-93000); RETICULOCYTE % (AUTO) 1.3 % (0.5-1.5)
[2024-11-03] MEDS ORDERED: magnesium sulf-water 2g/50mL 50 ML IV PRN (20:40)
[2024-11-03] MEDS ORDERED: ondansetron/PF 4mg/2ml inj IV PRN (20:40)
[2024-11-03] MEDS ORDERED: magnesium sulf-water 4G/100mL 100 ML IV PRN (20:40)
[2024-11-03] MEDS ORDERED: potassium Cl 20 mEq SR tablet PO PRN ×2 (20:40)
[2024-11-03] MEDS ORDERED: acetaminophen 325mg tablet PO PRN (20:40)
[2024-11-03] MEDS ORDERED: potassium Cl 40MEQ/1/2NS 520ml 520 ML IV PRN (20:40)
[2024-11-03] MEDS ORDERED: mag hydrox/Alum hydrox/simeth 30ml oral suspension PO PRN (20:40)
[2024-11-03] MEDS ORDERED: magnesium Cl slow-release 64mg tablet PO PRN (20:40)
[2024-11-03] MEDS ORDERED: morphine 2 MG/ML inj. syringe IV PRN (20:40)
[2024-11-03] MEDS ORDERED: magnesium hydroxide 30ml (MOM) UD suspension PO PRN (20:40)
[2024-11-03] MEDS: normal saline 1000ml 1,000 ML IV SCH (22:15)
[2024-11-03] MEDS: pantoprazole 40MG/NS 100ML BAG 100 ML IV SCH (22:15)
[2024-11-04] VITALS (16 sets, daily range): BP systolic 113–169; BP diastolic 52–92; PULSE 93–142; RESP 11–22; TEMP 97–98; O2SAT 94–100
[2024-11-04 02:54] LABS: BASOPHILS # (AUTO) 0.1 X10'3 (0-0.2); BASOPHILS % (AUTO) 1.1 % (0-1); EOSINOPHILS # (AUTO) 0.2 X10'3 (0-0.9); EOSINOPHILS % (AUTO) 1.3 % (0-6); LYMPHOCYTES # (AUTO) 2.1 X10'3 (1.1-4.8); LYMPHOCYTES % (AUTO) 18.1 % (21-51); MEAN CORPUSCULAR HGB CONC 31.9 g/dL (33.0-36.5); MEAN CORPUSCULAR VOLUME 78.3 FL (78-98); MEAN PLATELET VOLUME 7.6 FL (7.4-10.4); MONOCYTES # (AUTO) 0.7 X10'3 (0-0.9); MONOCYTES % (AUTO) 6.1 % (2-12); NEUTROPHILS # (AUTO) 8.7 X10'3 (1.8-7.7); NEUTROPHILS % (AUTO) 73.4 % (42-75); PLATELET COUNT 359 X10'3 (140-440); RED CELL DISTRIBUTION WIDTH 16.5 % (11.5-14.5); WHITE BLOOD COUNT 11.9 X10'3 (4.5-11.0)
[2024-11-04 03:05] LABS: ALANINE AMINOTRANSFERASE 26 U/L (12-78); ALBUMIN 2.8 G/DL (3.4-5.0); ALBUMIN/GLOBULIN RATIO 0.8 (1.1-1.5); ALKALINE PHOSPHATASE 144 IU/L (46-116); ANION GAP 10 (8-16); ASPARTATE AMINO TRANSFERASE 41 U/L (10-37); BILIRUBIN,TOTAL 0.6 MG/DL (0.1-1.0); BLOOD UREA NITROGEN 14 MG/DL (7-18); BUN/CREATININE RATIO 14.4 (10.0-20.0); CALCIUM 7.9 MG/DL (8.5-10.1); CHLORIDE 106 MMOL/L (99-107); CREATININE 0.97 MG/DL (0.60-1.10); GLUCOSE 114 MG/DL (70-104); POTASSIUM 4.3 MMOL/L (3.5-5.1); SODIUM 140 MMOL/L (135-145); TOTAL CARBON DIOXIDE 23.9 MMOL/L (24-32); TOTAL PROTEIN 6.1 G/DL (6.4-8.2); eCRCL 79 ML/MIN; eGFR 78 ML/MIN
[2024-11-04 03:24] LABS: BILIRUBIN,URINE NEGATIVE (Neg); CLARITY,URINE CLOUDY (Clear); COLOR,URINE YELLOW (Yellow); GLUCOSE, URINE >=1000 mg/dl (Neg); KETONES,URINE NEGATIVE (Neg); LEUKOCYTE ESTERASE ,URINE NEGATIVE (Neg); NITRITES, URINE NEGATIVE (Neg); OCCULT BLOOD,URINE NEGATIVE (Neg); PH,URINE 5.5 (4.8-8.0); PROTEIN,URINE NEGATIVE (Neg); UROBILINOGEN,URINE 0.2 E.U/dL (0.2-1.0)
[2024-11-04 03:28] LABS: URINE AMPHETAMINE SCREEN POSITIVE (Neg); URINE BARBITUATE SCREEN NEGATIVE (Neg); URINE BENZODIAZEPINES SCREEN NEGATIVE (Neg); URINE CANNABINOID SCREEN POSITIVE (Neg); URINE COCAINE SCREEN NEGATIVE (Neg); URINE METHADONE SCREEN NEGATIVE (Neg); URINE OPIATE SCREEN POSITIVE (Neg); URINE PHENCYCLIDINE SCREEN NEGATIVE (Neg)
[2024-11-04 03:50] LABS: UA COLLECTION TYPE CLN CATCH MIDSTREAM
[2024-11-04 03:54] LABS: SQUAMOUS EPITHELIAL CELL,UR FEW /LPF (FEW)
[2024-11-04 03:55] LABS: BACTERIA,URINE 3+ /HPF (Neg); MUCUS STRANDS NONE SEEN /LPF (Neg); RBC,URINE NONE SEEN /HPF (0-2)
[2024-11-04] MEDS: ipratropium/albuterol 3ml nebule NEB PRN (06:51)
[2024-11-04] MEDS: K and/or MAG REPLACEMENT MC SCH (08:00)
[2024-11-04] MEDS: docusate sod 100mg capsule PO SCH (08:00)
[2024-11-04 10:06] LABS: OCCULT BLOOD STOOL POSITIVE (Neg)
[2024-11-04] MEDS ORDERED: LIDOcaine 2% Viscous 15ml cup ONE ×2 (14:22→14:30)
[2024-11-04] MEDS ORDERED: MIDAZolam 1 MG/ML 5ML VIAL ONE (14:28)
[2024-11-04] MEDS ORDERED: fentaNYL/PF 50MCG/1 ML 2ML syringe ONE (14:29)
[2024-11-04] MEDS ORDERED: simethicone 40mg/0.6ml oral drops 30ml PO PRN (15:55)
[2024-11-04] MEDS ORDERED: LIDOcaine 2% Viscous 15ml cup MM PRN (15:55)
[2024-11-04] MEDS ORDERED: MIDAZolam 1 MG/ML 5ML VIAL IV PRN (15:55)
[2024-11-04] MEDS ORDERED: fentaNYL/PF 50MCG/1 ML 2ML syringe IV PRN (16:00)
[2024-11-04] MEDS: morphine 2 MG/ML inj. syringe IV PRN (17:46)
[2024-11-04] MEDS: PEG 3350/Na sulf,bicarb,Cl/KCl oral sol 4 liter bottle PO ONE (18:04)
[2024-11-05] VITALS (11 sets, daily range): BP systolic 100–166; BP diastolic 58–90; PULSE 93–148; RESP 17–20; TEMP 97.3–98.7; O2SAT 93–100
[2024-11-05] MEDS: HYDROcodone/acetaminophen 5mg/325mg tablet PO PRN (04:23)
[2024-11-05 07:34] LABS: BASOPHILS # (AUTO) 0.1 X10'3 (0-0.2); BASOPHILS % (AUTO) 0.6 % (0-1); EOSINOPHILS # (AUTO) 0.1 X10'3 (0-0.9); EOSINOPHILS % (AUTO) 0.7 % (0-6); HEMOGLOBIN 7.3 g/dl (14.0-17.9); LYMPHOCYTES # (AUTO) 1.6 X10'3 (1.1-4.8); LYMPHOCYTES % (AUTO) 10.3 % (21-51); MEAN CORPUSCULAR HEMOGLOBIN 24.9 PG (27.0-31.0); MEAN CORPUSCULAR HGB CONC 31.7 g/dL (33.0-36.5); MEAN CORPUSCULAR VOLUME 78.3 FL (78-98); MEAN PLATELET VOLUME 7.4 FL (7.4-10.4); MONOCYTES # (AUTO) 1.6 X10'3 (0-0.9); MONOCYTES % (AUTO) 10.6 % (2-12); NEUTROPHILS # (AUTO) 11.8 X10'3 (1.8-7.7); NEUTROPHILS % (AUTO) 77.8 % (42-75); PLATELET COUNT 283 X10'3 (140-440); RED BLOOD COUNT 2.94 X10'6 (4.70-6.10); RED CELL DISTRIBUTION WIDTH 16.9 % (11.5-14.5); WHITE BLOOD COUNT 15.1 X10'3 (4.5-11.0)
[2024-11-05 07:55] LABS: ALANINE AMINOTRANSFERASE 27 U/L (12-78); ALBUMIN 2.7 G/DL (3.4-5.0); ALBUMIN/GLOBULIN RATIO 0.8 (1.1-1.5); ALKALINE PHOSPHATASE 127 IU/L (46-116); ANION GAP 9 (8-16); ASPARTATE AMINO TRANSFERASE 70 U/L (10-37); BILIRUBIN,TOTAL 1.2 MG/DL (0.1-1.0); BLOOD UREA NITROGEN 11 MG/DL (7-18); BUN/CREATININE RATIO 13.6 (10.0-20.0); CALCIUM 7.7 MG/DL (8.5-10.1); CHLORIDE 106 MMOL/L (99-107); CREATININE 0.81 MG/DL (0.60-1.10); GLUCOSE 104 MG/DL (70-104); MAGNESIUM 1.8 MG/DL (1.5-2.4); POTASSIUM 3.8 MMOL/L (3.5-5.1); SODIUM 139 MMOL/L (135-145); TOTAL CARBON DIOXIDE 23.7 MMOL/L (24-32); TOTAL PROTEIN 6.1 G/DL (6.4-8.2); eCRCL 95 ML/MIN; eGFR > 90 ML/MIN
[2024-11-05] MEDS: CefTRIAXone 2gm/D5W 50ml BAG 50 ML IV SCH (10:00)
[2024-11-05] MEDS: PEG 3350/Na sulf,bicarb,Cl/KCl oral sol 4 liter bottle PO ONE ×2 (10:00→14:00)
[2024-11-05] MEDS: carVEDilol 3.125mg tablet PO SCH (14:07)
[2024-11-05] MEDS: magnesium sulf-water 2g/50mL 50 ML IV ONE (19:31)
[2024-11-05] MEDS: pantoprazole 40 MG vial IV SCH (19:38)
[2024-11-05] MEDS: potassium Cl 20 mEq SR tablet PO ONE (20:46)
[2024-11-06] VITALS (9 sets, daily range): BP systolic 105–137; BP diastolic 67–85; PULSE 74–118; RESP 16–24; TEMP 97.5–97.6; O2SAT 99–100
[2024-11-06] MEDS: sacubitril/valsartan 24mg-26mg tablet PO SCH (08:00)
[2024-11-06] MEDS ORDERED: fentaNYL/PF 50MCG/1 ML 2ML syringe ONE (13:20)
[2024-11-06] MEDS ORDERED: MIDAZolam 1 MG/ML 5ML VIAL ONE (13:21)
[2024-11-06] MEDS ORDERED: iohexol 300mg/ml 100ml inj. ONE (15:48)
== END 2024-11-06 17:00 | disposition left against medical advice (07) | DRG 871 ==
LOC: ER 17:03 → ED HOLD 19:39 → PCU 3S 11-04 07:10
PROVIDERS: ADMIT Internal Medicine Critical Care Medicine; ATTEND Family Medicine
PROC: 0DJ08ZZ Inspection of Upper Intestinal Tract, Via Natural or Artificial Opening Endoscopic (ICD-10-PCS; principal; 2024-11-04)
PROC: 0DBN8ZX Excision of Sigmoid Colon, Via Natural or Artificial Opening Endoscopic, Diagnostic (ICD-10-PCS; 2024-11-06)
PROC: 0DBK8ZZ Excision of Ascending Colon, Via Natural or Artificial Opening Endoscopic (ICD-10-PCS; 2024-11-06)
PROC: 0DBH8ZZ Excision of Cecum, Via Natural or Artificial Opening Endoscopic (ICD-10-PCS; 2024-11-06)
PROC: 0W3P8ZZ Control Bleeding in Gastrointestinal Tract, Via Natural or Artificial Opening Endoscopic (ICD-10-PCS; 2024-11-06)
PROC: BW251ZZ Computerized Tomography (CT Scan) of Chest, Abdomen and Pelvis using Low Osmolar Contrast (ICD-10-PCS; 2024-11-06)
DX: A41.9 Sepsis, unspecified organism (principal); K21.01 Gastro-esophageal reflux disease with esophagitis, with bleeding; K29.61 Other gastritis with bleeding; N30.00 Acute cystitis without hematuria; I50.22 Chronic systolic (congestive) heart failure; N17.9 Acute kidney failure, unspecified; R16.0 Hepatomegaly, not elsewhere classified; I11.0 Hypertensive heart disease with heart failure; D50.0 Iron deficiency anemia secondary to blood loss (chronic); K63.5 Polyp of colon; E86.0 Dehydration; F17.210 Nicotine dependence, cigarettes, uncomplicated; K44.9 Diaphragmatic hernia without obstruction or gangrene; J44.89 Other specified chronic obstructive pulmonary disease; Z53.21 Procedure and treatment not carried out due to patient leaving prior to being seen by health care provider; Z79.899 Other long term (current) drug therapy; Z79.84 Long term (current) use of oral hypoglycemic drugs; Z88.8 Allergy status to other drugs, medicaments and biological substances; I25.2 Old myocardial infarction
CPT/HCPCS: 36415; 43235; 45380; 45385; 71045; 71260; 74176; 74177; 80048; 80053; 80076; 80305; 80320; 81001; 82140; 82272; 82948; 83735; 85025; 85045; 85610; 85730; 86885; 86900; 86901; 87077; 87081; 87088; 87186; 93005; 94640; 94760; 96374; 96375; 99152; 99285; A4620; A6590; C1889; G0378; J0696; J2250; J2270; J2354; J2470; J3010; J7030; J7040; Q9967